=== PATIENT | male | born 1985 | race Caucasian/White ===

== ENCOUNTER 2019-06-15 13:51 | Outpatient (CLI) | payer MEDICARE, MEDICAID, SELFPAY ==
--- NOTE | 2019-06-15 16:09 | ONC CON_ITS ---
Dr. Eid New Patient Note Patient: Hermelindo Horn Unit #: [id number]: [id number] Dicatated By: Ortiz Eid M.D.Date of Visit: Jun 15, 2019 Onc MED New Patient/Consult Referring Physician: JIA PEDERSON, F.N.P. History of Present Illness: Mr. Dylon Horn , Is a 34-year-old gentleman with history of Burkitt's lymphoma stage IV , with involvement of paranasal sinuses, bone marrow and liver diagnosed in September 2007, status post 8 cycles of R/hyper CVAD , completed in April 2008, achieved complete remission. History of polycythemia , negative for ROSE MARY 2 mutation, probably due to history of sleep apnea, now on CPAP machine History of mild mitral regurg, autistic disorder, hypertension and gout. Patient denies any night sweats, denies any weight loss, denies any recurrent fever or peripheral lymphadenopathy. Patient was complaining of, off and on left scapular area discomfort/pain for the last 3- 4 days, now improving. Denies any trauma but thought maybe he 'slept on that side'. No chest pain, no palpitation, no shortness of breath, no pain in left arm. Denies any jaundice, denies any abdominal pain or fullness, denies any dysphagia, denies any visual disturbance, denies any melena or hematochezia. Past Medical History: Mr. Pisanos medical history consists of elevated bilirubin, gouty arthritis, hypertension, obstructive sleep apnea, and polycythemia. Past Surgical History: Mr. Pisanos surgical/procedural history consists of cholecystectomy and sinus surgery. Medications: Allopurinol 1 Tablet (of 100 mg) Oral daily, Losartan Potassium 1 Tablet (of 50 mg) Oral daily Allergies: Adhessive tape and Constrast dye. Social History: Mr. Horn is single. Mr. Horn has never smoked. He has no history of drinking. Family History: Mr. Horn's father at age 43: Blood clots and heart disease. Review Of Symptoms: Constitutional - Appetite is good and weight is stable. No fever, chills, hot flashes, or night sweats. Energy level is fair, ENMT - No sinus congestion/drainage. No mouth sores. No sore throat or difficulty swallowing, Hematologic/Lymphatic - No abnormal bruising or bleeding, Respiratory - Positive for shortness of breath when laying down (Pt wears CPAP). No cough. No pleuritic pain or hemoptysis, Cardiovascular - No angina pain. No palpitations, Gastrointestinal - No nausea or vomiting. No heartburn or acid reflux. No diarrhea or constipation. No blood in the stool or black stools, Genitourinary (M) - No dysuria or hematuria. No urinary frequency. No urgency or incontinence, Musculoskeletal - Pt mother reports back pain, Neurologic - No headache or dizziness. No numbness/paresthesias or other focal neurologic symptoms, Psychiatric - Positive for anxiety and insomnia. Vital Signs: Performed on Jun 15, 2019 14:57: 8, 29.30, 2.11 sq.m, 70 in, 98 %, 98 /min, 18 /min, 99/76 mm(hg), 97.6 F (LOW), and 204.2 lbs (HIGH). Performance Status: 0 - Fully active, able to carry on all predisease activities without restrictions. (ECOG) Physical Examination: ENMT - Sinuses are nontender. No oral exudates, ulcers, masses, thrush or mucositis. Oropharynx clear. Tongue normal, Neck - Supple without masses or thyromegaly. No jugular venous distension, Hematologic/Lymphatic - No petechiae or purpura. No tender or palpable lymph nodes in the cervical, supraclavicular, axillary or inguinal area, Respiratory - Lungs are clear to auscultation without rhonchi or wheezing, Cardiovascular - Regular rate and rhythm of heart, Abdomen - Non-tender, non-distended, no masses, ascites or hepatosplenomegaly. Good bowel sounds. No guarding or rebound tenderness. No pulsatile masses, Extremities - no edema. Lab/Imaging: Most recent lab results are not available for this patient. Impression: History of Burkitt's lymphoma, stage IV with involvement of paranasal sinuses, bone marrow and liver, diagnosed in September 2007, treated with R/hyper CVAD ???8 cycles completed in April 2008 with complete remission. History of polycythemia diagnosed in January 2013 due to sleep apnea, negative for Rose Mary 2 mutation Autistic disorder, mild mitral regurg, history of hypertension, history of gout,. Plan: Discussed with patient regarding his concerns and questions, patient has no B symptoms suggestive of recurrence of lymphoma, no peripheral lymphadenopathy, no organomegaly on physical exam, no history of abnormal CBC, as per record labs done 03/04/2019 showed white blood count 7.9 hemoglobin 17.3 hematocrit 50.8 platelets 178,000 with normal differential. Patient had a regular follow-up with medical oncology in [place] till 2016 with no evidence of disease., Recurrence of Burkitt's lymphoma is rare after 2 years, now it is over 10 years since diagnosis and since remission. Patient will continue to follow with his PMD and we will see him on as-needed basis unless patient develops B symptoms or cytopenias or any new symptoms due to organomegaly or symptoms suggestive of lymphoma in that case he will call us immediately. As far as left upper back pain/discomfort is concern, now, is improving patient was advised to use heating pad, if no relief then see his primary care physician or call us in that case we'll consider plain x-ray thorax. Signed By: Ortiz Eid M.D. <<Signature on File>>
== END 2019-06-15 13:52 | disposition home or self-care (01) ==
LOC: ONCMED 13:52
PROVIDERS: Family Provider Family Medicine; PCP Nurse Practitioner Family; Referring Provider Nurse Practitioner Family; Visit Provider Internal Medicine Hematology & Oncology
DX: Z85.72 Personal history of non-Hodgkin lymphomas (principal); G47.33 Obstructive sleep apnea (adult) (pediatric); I34.0 Nonrheumatic mitral (valve) insufficiency; F84.0 Autistic disorder; I10 Essential (primary) hypertension; M10.9 Gout, unspecified; M54.6 Pain in thoracic spine; Z79.899 Other long term (current) drug therapy; Z91.041 Radiographic dye allergy status; Z90.49 Acquired absence of other specified parts of digestive tract; Z92.21 Personal history of antineoplastic chemotherapy
CPT/HCPCS: 99204

== ENCOUNTER 2019-09-11 12:13 | Outpatient (RCR) | payer MEDICARE, MEDICAID, SELFPAY | END 2019-09-27 23:59 | disposition home or self-care (01) | LOC: SPT 12:13 | PROVIDERS: PCP Nurse Practitioner Family; Referring Provider Nurse Practitioner Family; Visit Provider Nurse Practitioner Family | DX: M25.512 Pain in left shoulder (principal) | CPT/HCPCS: 97110; 97161 ==

== ENCOUNTER 2019-09-28 06:00 | Outpatient (RCR) | payer MEDICARE, MEDICAID, SELFPAY | END 2019-10-27 23:59 | disposition home or self-care (01) | LOC: SPT 06:00 | PROVIDERS: PCP Nurse Practitioner Family; Visit Provider Nurse Practitioner Family | DX: M25.512 Pain in left shoulder (principal) | CPT/HCPCS: 97110 ==